=== PATIENT | male | born 1965 | race African-American/Black ===

== ENCOUNTER 2022-04-06 14:01 | Inpatient (IN) | payer OTHER ==
[2022-04-06 14:56] VITALS: BMI 22.4
[2022-04-06] MEDS ORDERED: MAG HYDROX/AL HYDROX/SIMETH 30 ML UNIT-DOSE CUP PO PRN (15:53)
[2022-04-06] MEDS ORDERED: IBUPROFEN 600 MG TABLET (FP) PO PRN (15:53)
[2022-04-06] MEDS ORDERED: ONDANSETRON *ODT* 4 MG TABLET SL PRN (15:53)
[2022-04-06] MEDS ORDERED: METHOCARBAMOL 500 MG TABLET PO PRN (15:53)
[2022-04-06] MEDS ORDERED: MAGNESIUM CITRATE 300 ML BOTTLE PO PRN (15:53)
[2022-04-06] MEDS ORDERED: ACETAMINOPHEN 325 MG TABLET (FP) PO PRN ×2 (15:53)
[2022-04-06] MEDS ORDERED: DICYCLOMINE HCL 10 MG CAPSULE PO PRN (15:53)
[2022-04-06] MEDS ORDERED: MAGNESIUM HYDROX 2400MG/30ML ORAL SUSPENSION 30 ML CUP PO PRN (15:53)
[2022-04-06] MEDS ORDERED: BENZOCAINE/MENTHOL (CHLORASEPTIC ) LOZENGE MM PRN (15:53)
[2022-04-06] MEDS ORDERED: chlordiazePOXIDE HCL 25 MG CAPSULE PO PRN (15:53)
[2022-04-06] MEDS ORDERED: LOPERAMIDE HCL 2 MG CAPSULE PO PRN (15:53)
[2022-04-06] MEDS ORDERED: NICOTINE POLACRILEX 2 MG GUM BUC PRN (15:53)
[2022-04-06] MEDS ORDERED: BISMUTH SUBSALICYLATE 524 MG/30 ML PO PRN (15:53)
[2022-04-06] MEDS ORDERED: IBUPROFEN 400 MG TABLET (FP) PO PRN (15:53)
[2022-04-06] MEDS ORDERED: NICOTINE 10 MG CARTRIDGE (INHALER) IH PRN (15:53)
[2022-04-06] MEDS: chlordiazePOXIDE HCL 25 MG CAPSULE PO SCH (19:01)
[2022-04-06] MEDS: hydrOXYzine PAMOATE 25 MG CAPSULE (FP) PO SCH (19:01)
[2022-04-07] MEDS: chlordiazePOXIDE HCL 25 MG CAPSULE PO SCH ×5 (00:18→22:07)
[2022-04-07] MEDS: MELATONIN 5 MG TABLETS PO SCH ×2 (00:18→23:00)
[2022-04-07] MEDS: hydrOXYzine PAMOATE 25 MG CAPSULE (FP) PO SCH ×6 (00:18→23:00)
[2022-04-07] MEDS: THIAMINE HCL 100 MG TABLET (FP) PO SCH ×2 (00:18→22:07)
[2022-04-07 10:22] LABS: HEMATOCRIT 41.2 % (35.4-49); HEMOGLOBIN 13.3 GM/dL (11.7-16.9); MCH 28.8 pg (25.7-33.7); MCHC 32.3 g/dl (32.0-35.9); MEAN CELL VOLUME 89.3 fl (80-96); MEAN PLT VOLUME 7.6 fl (7.5-11.1); PLATELET COUNT 204 10^3/uL (134-434); RBC 4.61 M/mm3 (4.00-5.60); RDW 14.2 % (11.9-15.9); WHITE BLOOD COUNT 7.4 K/mm3 (4.0-10.0)
[2022-04-07] MEDS: PRENATAL VITAMINS W/ FOLIC ACID TABLET (FP) PO SCH (10:24)
[2022-04-07] MEDS: NICOTINE 21 MG/24 HOURS TOPICAL PATCH TD SCH (10:26)
[2022-04-07 10:42] LABS: CALCIUM 8.8 mg/dL (8.5-10.1)
[2022-04-07 10:43] LABS: ALBUMIN 3.2 g/dl (3.4-5.0); BLOOD UREA NITROGEN 16.6 mg/dL (7-18)
[2022-04-07 10:46] LABS: CREATININE 0.7 mg/dL (0.55-1.3)
[2022-04-07 10:47] LABS: BILIRUBIN,TOTAL 1.1 mg/dL (0.2-1); TOT PROT 6.8 g/dl (6.4-8.2)
[2022-04-08] MEDS: hydrOXYzine PAMOATE 25 MG CAPSULE (FP) PO SCH ×5 (05:35→22:54)
[2022-04-08] MEDS: chlordiazePOXIDE HCL 25 MG CAPSULE PO SCH ×4 (05:35→22:53)
[2022-04-08] MEDS: PRENATAL VITAMINS W/ FOLIC ACID TABLET (FP) PO SCH (10:15)
[2022-04-08] MEDS: NICOTINE 21 MG/24 HOURS TOPICAL PATCH TD SCH (10:16)
[2022-04-08] MEDS: OLANZapine 10 MG TABLET PO SCH (22:52)
[2022-04-08] MEDS: THIAMINE HCL 100 MG TABLET (FP) PO SCH (22:52)
[2022-04-08] MEDS: MELATONIN 5 MG TABLETS PO SCH (22:54)
[2022-04-09] MEDS ORDERED: chlordiazePOXIDE HCL 10 MG CAPSULE PO PRN
[2022-04-09] MEDS: hydrOXYzine PAMOATE 25 MG CAPSULE (FP) PO SCH ×5 (06:19→22:20)
[2022-04-09] MEDS: chlordiazePOXIDE HCL 10 MG CAPSULE PO SCH ×4 (06:20→22:20)
[2022-04-09] MEDS: PRENATAL VITAMINS W/ FOLIC ACID TABLET (FP) PO SCH (10:53)
[2022-04-09] MEDS: NICOTINE 21 MG/24 HOURS TOPICAL PATCH TD SCH (10:53)
[2022-04-09] MEDS: MELATONIN 5 MG TABLETS PO SCH (22:20)
[2022-04-09] MEDS: THIAMINE HCL 100 MG TABLET (FP) PO SCH (22:20)
[2022-04-09] MEDS: OLANZapine 10 MG TABLET PO SCH (22:20)
[2022-04-10] MEDS: chlordiazePOXIDE HCL 10 MG CAPSULE PO SCH ×2 (05:58→17:55)
[2022-04-10] MEDS: hydrOXYzine PAMOATE 25 MG CAPSULE (FP) PO SCH ×5 (05:58→22:27)
[2022-04-10] MEDS: PRENATAL VITAMINS W/ FOLIC ACID TABLET (FP) PO SCH (10:49)
[2022-04-10] MEDS: NICOTINE 21 MG/24 HOURS TOPICAL PATCH TD SCH (10:49)
[2022-04-10] MEDS: OLANZapine 10 MG TABLET PO SCH (22:27)
[2022-04-10] MEDS: MELATONIN 5 MG TABLETS PO SCH (22:27)
[2022-04-10] MEDS: THIAMINE HCL 100 MG TABLET (FP) PO SCH (22:28)
[2022-04-11] MEDS ORDERED: chlordiazePOXIDE HCL 10 MG CAPSULE PO ONE (05:00)
[2022-04-11] MEDS: hydrOXYzine PAMOATE 25 MG CAPSULE (FP) PO SCH ×3 (05:15→15:18)
[2022-04-11] MEDS: PRENATAL VITAMINS W/ FOLIC ACID TABLET (FP) PO SCH (11:03)
[2022-04-11] MEDS: NICOTINE 21 MG/24 HOURS TOPICAL PATCH TD SCH (11:03)
[2022-04-11 12:56] VITALS: BP 124/82; PULSE 95; TEMP 96.7
== END 2022-04-11 15:30 | disposition home or self-care (01) | DRG 897 ==
LOC: YASAS 14:01 → Y6N 18:10 → Y3N 04-09 16:46
PROVIDERS: ADMIT Allergy & Immunology; ATTEND Surgery
PROC: HZ2ZZZZ Detoxification Services for Substance Abuse Treatment (ICD-10-PCS; principal; 2022-04-06)
DX: F10.230 Alcohol dependence with withdrawal, uncomplicated (principal); F14.20 Cocaine dependence, uncomplicated; F19.282 Other psychoactive substance dependence with psychoactive substance-induced sleep disorder; F12.20 Cannabis dependence, uncomplicated; F17.210 Nicotine dependence, cigarettes, uncomplicated; F25.9 Schizoaffective disorder, unspecified; B18.2 Chronic viral hepatitis C; H54.8 Legal blindness, as defined in USA; R76.11 Nonspecific reaction to tuberculin skin test without active tuberculosis; Z59.01 Sheltered homelessness; Z56.0 Unemployment, unspecified; Z88.8 Allergy status to other drugs, medicaments and biological substances
CPT/HCPCS: 36415; 71046-TC-FY; 80053; 85027; 86780; C9803-CS; U0003; U0005

== ENCOUNTER 2023-12-31 10:40 | Inpatient (IN) | payer OTHER ==
[2023-12-31 11:35] VITALS: BMI 21.7
[2023-12-31] MEDS ORDERED: ACETAMINOPHEN 325 MG TABLET (FP) PO PRN (13:55)
[2023-12-31] MEDS ORDERED: BENZONATATE 200 MG CAPSULE PO PRN (13:55)
[2023-12-31] MEDS ORDERED: MAG HYDROX/AL HYDROX/SIMETH 30 ML UNIT-DOSE CUP PO PRN (13:55)
[2023-12-31] MEDS ORDERED: guaiFENesin 600 MG TABLET.ER (FP) PO PRN (13:55)
[2023-12-31] MEDS ORDERED: BENZOCAINE/MENTHOL (CHLORASEPTIC ) LOZENGE MM PRN (13:55)
[2023-12-31] MEDS ORDERED: NICOTINE POLACRILEX 2 MG GUM BUC PRN (13:55)
[2023-12-31] MEDS ORDERED: NALOXONE HCL 0.4 MG/ML VIAL IM PRN (13:55)
[2023-12-31] MEDS ORDERED: MAGNESIUM HYDROX 2400MG/30ML ORAL SUSPENSION 30 ML CUP PO PRN (13:55)
[2023-12-31] MEDS ORDERED: POLYETHYLENE GLYCOL (HEALTHYLAX) 3350 17 GM PACKET PO PRN (13:55)
[2023-12-31] MEDS ORDERED: NALOXONE HCL (KLOXXADO) 8 MG SPRAY NS PRN (13:55)
[2023-12-31] MEDS ORDERED: DICYCLOMINE HCL 10 MG CAPSULE PO PRN (13:55)
[2023-12-31] MEDS ORDERED: IBUPROFEN 400 MG TABLET (FP) PO PRN (13:55)
[2023-12-31] MEDS ORDERED: LOPERAMIDE HCL 2 MG CAPSULE PO PRN (13:55)
[2023-12-31] MEDS ORDERED: BISMUTH SUBSALICYLATE 262 MG/15 ML BTL PO PRN (13:55)
[2023-12-31] MEDS ORDERED: ONDANSETRON *ODT* 4 MG TABLET ONE (14:35)
[2023-12-31] MEDS: ONDANSETRON *ODT* 4 MG TABLET SL PRN (14:36)
[2023-12-31] MEDS: THIAMINE HCL 100 MG TABLET (FP) PO SCH (22:23)
[2023-12-31] MEDS: hydrOXYzine PAMOATE 25 MG CAPSULE (FP) PO PRN (22:23)
[2023-12-31] MEDS: METHOCARBAMOL 500 MG TABLET PO PRN (22:24)
[2023-12-31] MEDS: MELATONIN 5 MG TABLETS PO SCH (22:24)
[2024-01-01] MEDS ORDERED: LORazepam 1 MG TABLET PO PRN (09:21)
[2024-01-01] MEDS: PRENATAL VITAMINS W/ FOLIC ACID TABLET (FP) PO SCH (10:09)
[2024-01-01] MEDS: NICOTINE 21 MG/24 HOURS TOPICAL PATCH TD SCH (10:09)
[2024-01-01] MEDS: LORazepam 2 MG TABLET PO SCH (10:10)
[2024-01-01 11:53] LABS: HEMATOCRIT 38.1 % (35.4-49); HEMOGLOBIN 12.1 GM/dL (11.7-16.9); MCH 27.8 pg (25.7-33.7); MCHC 31.8 g/dl (32.0-35.9); MEAN CELL VOLUME 87.5 fl (80-96); MEAN PLT VOLUME 7.1 fl (7.5-11.1); PLATELET COUNT 319 10^3/uL (134-434); RBC 4.36 M/mm3 (4.00-5.60); RDW 15.7 % (11.9-15.9); WHITE BLOOD COUNT 6.9 K/mm3 (4.0-10.0)
[2024-01-01 11:58] LABS: CHLORIDE 104 mmol/L (98-107); POTASSIUM 4.1 mmol/L (3.5-5.1); SODIUM 139 mmol/L (136-145)
[2024-01-01 12:01] LABS: CALCIUM 8.9 mg/dL (8.5-10.1)
[2024-01-01 12:02] LABS: ALBUMIN 2.9 g/dl (3.4-5.0); ANION GAP 2 mmol/L (4-13); BLOOD UREA NITROGEN 16.1 mg/dL (7-18); CO2 32 mmol/L (21-32); GLUCOSE,RANDOM 116 mg/dL (74-106)
[2024-01-01 12:05] LABS: BILIRUBIN,TOTAL 0.6 mg/dL (0.2-1); CREATININE 0.9 mg/dL (0.55-1.3); SGOT/AST 33 U/L (15-37); SGPT/ALT 23 U/L (13-61); TOT PROT 6.3 g/dl (6.4-8.2)
[2024-01-01 12:06] LABS: ALK PHOS 41 U/L (45-117)
[2024-01-01 13:14] LABS: HIV INTERPRETATION NEGATIVE (NEGATIVE)
[2024-01-02] MEDS: LORazepam 1 MG TABLET PO SCH (05:37)
[2024-01-02] MEDS: OLANZapine 10 MG TABLET PO SCH (22:27)
[2024-01-03] MEDS ORDERED: LORazepam 0.5 MG TABLET PO PRN
[2024-01-03] MEDS: LORazepam 0.5 MG TABLET PO SCH (05:43)
[2024-01-03] MEDS: IBUPROFEN 600 MG TABLET (FP) PO PRN (11:05)
[2024-01-03 17:00] VITALS: RESP 17
[2024-01-04] MEDS: LORazepam 0.5 MG TABLET PO ONE (05:17)
[2024-01-04 06:08] VITALS: BP 101/73; PULSE 73; TEMP 97.7
== END 2024-01-04 09:49 | disposition home or self-care (01) | DRG 897 ==
LOC: YASAS 10:40 → Y6N 13:42
PROVIDERS: ADMIT Allergy & Immunology; ATTEND Surgery
PROC: HZ2ZZZZ Detoxification Services for Substance Abuse Treatment (ICD-10-PCS; principal; 2023-12-31)
DX: F10.230 Alcohol dependence with withdrawal, uncomplicated (principal); Z59.01 Sheltered homelessness; F12.20 Cannabis dependence, uncomplicated; F17.210 Nicotine dependence, cigarettes, uncomplicated; F20.9 Schizophrenia, unspecified; F41.9 Anxiety disorder, unspecified; I10 Essential (primary) hypertension; H54.8 Legal blindness, as defined in USA; B18.2 Chronic viral hepatitis C; Z86.11 Personal history of tuberculosis; Z88.8 Allergy status to other drugs, medicaments and biological substances
CPT/HCPCS: 36415; 71046-TC-FY; 80053; 80305; 80307; 83036; 85027; 86780; 87389; 93005; 93010; Q0162